=== PATIENT | female | born 1995 | race Caucasian/White ===

== ENCOUNTER 2020-07-21 23:06 | Emergency (ER) | payer SELFPAY ==
[~2020-07-21] VITALS: Ht 160 cm; Wt 118.8 kg
--- NOTE | 2020-07-22 00:14 | NUR ---
PT CONNECTED TO CARDIAC, BP AND O2 MONITORS. TRISTAN, STATES SOME AXIETY. CALL LIGHT IN REACH.
--- NOTE | 2020-07-22 00:35 | NUR ---
TASK RN: US AT BS WITH PT AT THIS TIME.
[2020-07-22 01:44] VITALS: BP 134/68
== END 2020-07-22 01:46 | disposition home or self-care (01) ==
LOC: ED 07-22 00:12
DX: M79.662 Pain in left lower leg (principal); R60.0 Localized edema
CPT/HCPCS: 99284

== ENCOUNTER 2021-01-15 19:52 | Emergency (ER) | payer MEDICAID ==
[~2021-01-15] VITALS: Ht 160 cm; Wt 118.0 kg
--- NOTE | 2021-01-15 20:00 | NUR ---
PT AMBULATED TO ROOM, C/O PALPITATIONS. PT PLACED ON CR MONITOR, AND CHANGED INTO GOWN. EKG DONE.
[2021-01-15] MEDS ORDERED: LORazepam 1MG TABLET ONE (20:24)
[2021-01-15] MEDS ORDERED: LORazepam 1MG TABLET PO ONE (20:30)
[2021-01-15 21:16] LABS: BASOPHILS % (AUTO) 1 % (0-1); EOSINOPHILS % (AUTO) 1 % (1-7); LYMPHOCYTES % (AUTO) 23 % (22-44); MEAN CORPUSCULAR HEMOGLOBIN 26.8 pg (27.0-34.8); MEAN CORPUSCULAR HGB CONC 32.7 g/dL (32.4-35.8); MEAN PLATELET VOLUME 9.5 fL (7.4-10.4); MONOCYTES % (AUTO) 5 % (2-9); NEUTROPHILS % (AUTO) 71 % (42-75); PLATELET COUNT 284 x10^3/uL (130-400); RED CELL DISTRIBUTION WIDTH 15.1 % (9.6-15.2)
[2021-01-15 21:24] LABS: MD NO
[2021-01-15 21:31] LABS: ALBUMIN 3.4 g/dL (3.4-5.0); ANION GAP 7 mmol/L (5-15); CALCIUM 9.1 mg/dL (8.5-10.1); CHLORIDE 110 mmol/L (98-107)
[2021-01-15 21:42] LABS: ALANINE AMINOTRANSFERASE 24 U/L (12-78); ALKALINE PHOSPHATASE 75 U/L (45-117); BILIRUBIN,TOTAL 0.2 mg/dL (0.2-1.0); CREATININE 0.75 mg/dL (0.55-1.02); FREE T4 (FREE THYROXINE) 1.22 ng/dL (0.76-1.46); TOTAL PROTEIN 7.8 g/dL (6.4-8.2)
--- NOTE | 2021-01-15 22:54 | NUR ---
PT TO CT SCAN FOR ADDED TESTS. PT CALM AND COOPERATIVE.
[2021-01-16 00:48] LABS: BASOPHILS % (AUTO) 1 % (0-1); EOSINOPHILS % (AUTO) 0 % (1-7); LYMPHOCYTES % (AUTO) 26 % (22-44); MEAN CORPUSCULAR HEMOGLOBIN 26.9 pg (27.0-34.8); MEAN CORPUSCULAR HGB CONC 33.1 g/dL (32.4-35.8); MEAN PLATELET VOLUME 9.5 fL (7.4-10.4); MONOCYTES % (AUTO) 4 % (2-9); NEUTROPHILS % (AUTO) 68 % (42-75); PLATELET COUNT 293 x10^3/uL (130-400); RED BLOOD COUNT 4.52 x10^6/uL (3.82-5.3); RED CELL DISTRIBUTION WIDTH 15.3 % (9.6-15.2)
--- NOTE | 2021-01-16 00:49 | NUR ---
CBC TO BE REPEATED PER MD ORDER
[2021-01-16 00:53] LABS: MD NO
[2021-01-16 01:12] VITALS: BP 118/68
--- NOTE | 2021-01-16 02:06 | NUR ---
F/U AND D/C INSTRUCTIONS GIVEN TO PT, AND SHE V/U. PIV TO LEFT AC D/C'D AND CATH INTACT.
== END 2021-01-16 02:08 | disposition home or self-care (01) ==
LOC: ED 21:48
DX: O00.90 Unspecified ectopic pregnancy without intrauterine pregnancy (principal); R00.0 Tachycardia, unspecified; R42 Dizziness and giddiness; R00.2 Palpitations; Z32.01 Encounter for pregnancy test, result positive
CPT/HCPCS: 36415; 71045; 76830; 80053; 83735; 84439; 84443; 84702; 84703; 85025; 85379; 93005; 93970; 99285

== ENCOUNTER 2021-01-17 10:26 | Emergency (ER) | payer MEDICAID ==
[~2021-01-17] VITALS: Ht 160 cm; Wt 118.6 kg
[2021-01-17 10:28] VITALS: BP 143/86
--- NOTE | 2021-01-17 10:51 | NUR ---
PT BELIEVES SHE IS [age] WEEKS WITH FIRST PREGANCY. STATES THAT SHE HAD CRAMPING STARTED MONDAY AND SEEN HERE FOR SAME. CRAMPING HAS SUBSIDED AT THIS TIME.
== END 2021-01-17 12:21 | disposition home or self-care (01) ==
LOC: ED 11:05
DX: Z32.01 Encounter for pregnancy test, result positive (principal); R10.30 Lower abdominal pain, unspecified; R42 Dizziness and giddiness
CPT/HCPCS: 36415; 76801; 84702; 99284